=== PATIENT | female | born 1985 | race African-American/Black ===

== ENCOUNTER 2016-11-13 22:34 | Emergency (ER) | payer OTHER ==
[~2016-11-13] VITALS: Ht 157.5 cm; Wt 66.4 kg
[~2016-11-13 22:34] MED LIST: AMOX TR-K CLV1 EAC4; AZITHROMYCIN250 MG; BACTRIM,SEPT1 TABLET PO; BUTALB-APAP-CA1 EACH; CLINDAMYCIN PHO60 M1; ENDOCET 5-3251 EACH; ERYTHROMYC1 APPLICAT LEFT EYE; FLAGYL500 MG; FLONASE16 G1 BOTH NARES; FLUTICASONE PRO16 GM; HYCODAN SYRUP480 ML PO; IBUPROFEN800 MG; IBUPROFEN800 MG PO; ILOTYCIN1 GM RIGHT EYE; LABETALOL HCL100 MG; LABETALOL HCL100 MG PO; MOTRIN600 MG PO; MUCUS ER600 MG PO; Motrin PO; NAPROSYN500 MG PO; NOHOMEMEDS; NORCO 5/3251 TABLET PO; Normodyne,Trandate PO; OCUFLOX 0.100 DROP/5 BOTH EYES; PEN-VEE K,VEET500 MG PO; PROMETHAZINE HC25 M1; Percocet 5/325,Endoc PO; TESSALON PERLE100 MG PO; ZITHROMAX Z-PA250 MG PO; ZOFRAN ODT4 MG PO; ZYRTEC10 M2 PO
[2016-11-13] MEDS ORDERED: FLONASE16 G1 BOTH NARES (23:10)
[2016-11-13] MEDS ORDERED: ZITHROMAX Z-PA250 MG PO (23:10)
[2016-11-13] MEDS ORDERED: ALLEGRA-D 121 TABLET PO (23:10)
[2016-11-13 23:23] VITALS: BP 142/66
== END 2016-11-13 23:23 | disposition home or self-care (01) ==
LOC: EME 22:34
DX: J01.90 Acute sinusitis, unspecified (principal); H69.82 Other specified disorders of Eustachian tube, left ear; K08.89 Other specified disorders of teeth and supporting structures; F17.200 Nicotine dependence, unspecified, uncomplicated
CPT/HCPCS: 99281; 99284